=== PATIENT | male | born 2000 | race Caucasian/White ===

== ENCOUNTER 2024-04-02 16:54 | Emergency (ER) | payer OTHER, SELFPAY ==
[2024-04-02 17:24] VITALS: BP 123/78
[2024-04-02 17:37] LABS: % Basophils 1.3 % (0-2); % Eosinophils 4.3 % (0-6); % Immature Granulocytes 0.1 % (0-0.5); % Lymphocytes 36.3 % (20.5-51.1); % Monocytes 8.3 % (1.7-9.3); % Neutrophils 49.7 % (42.2-75.2); Absolute Basophils 0.1 10^3/uL (0-0.2); Absolute Eosinophils 0.3 10^3/uL (0-0.7); Absolute Lymphocytes 2.6 10^3/uL (1.2-3.4); Absolute Monocytes 0.6 10^3/uL (0.1-0.6); Absolute Neutrophils 3.6 10^3/uL (1.4-6.5); Hematocrit 43.7 % (39.0-52.0); Hemoglobin 14.9 g/dL (13.0-18.0); Mean Corp Hgb Conc. 34.1 g/dL (33.0-37.0); Mean Corpuscular Hgb 28.9 pg (27.0-31.0); Mean Corpuscular Volume 84.9 fL (80.0-94.0); Mean Platelet Volume 10.6 fL (7.4-10.4); Nucleated Red Blood Cells % 0 % (-); Platelet Count 280 10^3/uL (130-400); Red Blood Cell Count 5.15 10^6/uL (4.70-6.10); Red Cell Dist. Width 12.7 % (11.5-14.5); White Blood Cell Count 7.1 10^3/uL (4.8-10.8)
[2024-04-02 17:52] LABS: ALT (SGPT) 16 U/L (0-50); AST (SGOT) 23 U/L (17-59); Albumin 4.8 g/dl (3.5-5.0); Alkaline Phosphatase 56 U/L (38-126); Blood Urea Nitrogen 19 mg/dl (9-20); Carbon Dioxide 27 mmol/L (22-30); Chloride 101 mmol/L (98-107); Glucose 91 mg/dl (70-99); Potassium 4.3 mmol/L (3.5-5.1); Sodium 140 mmol/L (135-145); Total Bilirubin 0.4 mg/dl (0.2-1.3); Total Protein 7.2 g/dl (6.3-8.2); eGFR > 60.00
[2024-04-02 18:01] VITALS: BMI 27.8
[2024-04-02 18:04] VITALS: BP 119/67
--- NOTE | 2024-04-02 19:09 | ED.GENMED ---
History of Present Illness
General
Chief Complaint: Abdominal Pain
Source: patient
Exam Limitations: none
Time Seen by Provider: 04/02/24 18:46
History of Present Illness
History of Present Illness:
This is a 23 year old male that comes in with c/o right lower abd pain. States that he started with abd pain on Friday. States that when he got up on Friday the pain was still there. States that it has been steady. States that when he moves around
or coughs he had pain. Today patient went to see the PCP and when she pushed on the left he had pain on the right. States that he was sent in for further evaluation. States that he has had diarrhea only once in the morning. Denies any fever,
chills, chest pain, SOB, nausea, vomiting, headache, dizziness, urinary burning.
Past History
Past History
ED Past Medical History: None; Negative Asthma, HTN, Hypercholesterolemia or NIDDM
ED Past Surgical History: None
Social History
Tobacco: Vaping
Alcohol: Occasional
Personal: Single
Living: with family
Review of Systems
Review of Systems
All Other Systems: ROS reviewed and negative except as documented in HPI and ROS
Constitutional: Reports no symptoms; Denies fever or chills
EENT: Reports no symptoms
Respiratory: Reports no symptoms; Denies cough or trouble breathing
Cardiac: Reports no symptoms; Denies chest pain
ABD/GI: Reports abdominal pain and diarrhea; Denies nausea or vomiting
: Reports no symptoms; Denies dysuria, frequency or urgency
Musculoskeletal: Reports no symptoms
Skin: Reports no symptoms
Neurological: Reports no symptoms; Denies dizzy or headache
Psychiatric: Reports no symptoms
Phy Exam
General Physical Exam
General Presentation: well appearing and no apparent distress
General age: appears stated age
General Skin: warm and dry
General Habitus: normal
General Mental: alert
General Hydration: appears well hydrated
ENT Exam
ENT Exam: TM's normal, pharynx normal and neck supple
Eye Exam
Eye Exam: EOMI
Cardiovascular Exam
Cardiovascular Exam: regular rate/rhythm, no edema, no murmur and normal peripheral pulses
Pulmonary Exam
Pulmonary Exam: lungs clear, no respiratory distress, no rales, chest non tender, no crackles, no rhonchi, no wheezing and no cough
Gastrointestinal Exam
Gastrointestinal Exam: normal bowel sounds, soft, no organomegaly, no pulsatile mass, non distended and tender (RLQ tenderness with palpation)
Musculoskeletal Exam
Musculoskeletal Exam: full ROM and no edema
Skin Exam
Skin Exam: normal color, warm/dry, no rash and no petechia
Psychiatric Exam
Psychiatric Exam: normal mood/affect
Course
Orders/Labs/Results
Orders:
Orders
04/02/24 17:29
Complete Blood Count/With Diff Urgent
Comprehensive Metabolic Panel Urgent
04/02/24 19:09
CT Abd/pel W Iv And Oral Contr Urgent
Comment:
Reason For Exam: Right lower abd pain
0.9% Sodium Chloride 1000 ml [Nss] 1,000 ml IV BOLUS
Iohexol [Omnipaque] See Protocol PO NOW STA
04/02/24 21:05
Urinalysis Reflex To Culture Urgent
Date Specimen was Collected: 04/02/24
Time Specimen was Collected: 21:01
Abnormal Lab Results
04/02/24
17:29
MPV 10.6 H fL
(7.4-10.4)
04/02/24 17:29
04/02/24 17:29
Labs unremarkable. Urine negative for infection.
Vital Signs
Initial and Last Documented VS:
Initial Vital Signs
Temp Pulse Resp BP Pulse Ox
98 F 65 18 123/78 98
04/02/24 17:24 04/02/24 17:24 04/02/24 17:24 04/02/24 17:24 04/02/24 17:24
Last Documented Vital Signs
Temp Pulse Resp BP Pulse Ox
97.9 F 58 16 112/71 98
04/02/24 18:04 04/02/24 22:02 04/02/24 22:02 04/02/24 22:02 04/02/24 22:02
MDM/Problems Addressed
Differential Diagnosis Includes:
Appendicitis, Colitis
MDM/Problems Addressed:
This is a 23 year old male that comes in with c/o right lower abd pain that started on Friday. States that this has been Steady and that today he went to see the PCP and was sent to the ER further evaluation.
Will get labs and CT scan.
Back into see patient. Explained that his blood work is normal and the CT is normal. Questioned patient if he was doing any exercises that he could have pulled a groin muscle. States that he does work at [employer] and he has also kristi golfing. EXplained
that he may have just pulled his muscle. Patient to follow up with the family doctor. Return with any concerns.
Chronic conditions affecting care:
NA
Acute Exacerbation and/or Progression of Chronic Illness:
NA
*Radiology
Radiology exam reviewed: radiology read reviewed (CT- No significant abnormality identified in the abdomen or pelvis, as described above. Normal appendix. )
*Pulse Oximetry
Patient hypoxic: no
*EKG
Interpreted by ED Provider?: NA
Rate: EKG- N/A
*Bingo Usher Interpretation
Rate: Bingo Usher- N/A
*Critical Care Note
Total Time (30-74mins, 75-104mins- exclusive of procedures): Not Applicable
ED Attending Note
-
Portions of this chart may have been created with voice recognition software.� Occasional wrong word or��sound alike� substitutions may have occurred due to the inherent limitations of voice recognition software.
Discharge Plan
Departure
Patient Disposition: Home (Routine Discharge)
Date of Disposition: 04/02/24
Time of Disposition: 22:52
Patient with high blood pressure during this ER visit?: No
Condition: Good
Covid-19: Not Applicable
Discharge Problem:
Abdominal pain, lower
Instructions: Abdominal Pain
Prescriptions:
No Action
naproxen sodium [Aleve] 220 MG tablet
220 mg PO PRN PRN (Reason: headache)
Referrals:
UNKNOWN - PT DOES,NOT KNOW [Family Provider] -
Activity Restrictions/Additional Instructions:
As discussed, your blood work is all normal along with your CT scan. This may be due to muscle pulls with lifting of twisting. You may use Tylenol or Ibuprofen for pain. Follow with the family doctor as needed. IF YOU HAVE ANY OTHER CONCERNS PLEASE
RETURN TO THE EMERGENCY ROOM.
Interventions
Interventions:
*Risk Screen - Suicide Last Done: 04/02/24 18:01
*General Assessment Last Done: 04/02/24 18:01
*Neglect/Abuse Screening Last Done: 04/02/24 18:01
*ED COVID-19 Vaccine History Last Done: 04/02/24 18:01
LT-Ioxdwe-Vifgevtefb Assessment Last Done: 04/02/24 18:05
Discharge Date and Time
Print Language: MARTINIQUAIS
[2024-04-02] MEDS: OMNIPAQUE 50 ML PO (19:18)
[2024-04-02] MEDS: NSS 1000 IV (19:28)
[2024-04-02 19:30] VITALS: BP 119/73
[2024-04-02 21:11] LABS: Urine Albumin Negative (Neg - Trace); Urine Bilirubin Negative (Negative); Urine Character Clear (Clear); Urine Color Yellow; Urine Glucose Negative (Negative); Urine Ketone Negative (Negative); Urine Leukocyte Negative (Negative); Urine Nitrite Negative (Negative); Urine Occult Blood Negative (Negative); Urine Specific Gravity 1.015 (<1.030); Urine Urobilinogen Negative (Neg - 1+)
[2024-04-02 22:02] VITALS: BP 112/71
[2024-04-02 22:56] VITALS: BP 122/71
== END 2024-04-02 23:02 | disposition home or self-care (01) ==
LOC: EMR 16:54
PROVIDERS: Clinical Nurse Specialist Family Health; Emergency Medicine; EMERGENCY PHYSICIAN Student in an Organized Health Care Education/Training Program
DX: R10.31 Right lower quadrant pain (principal); R19.7 Diarrhea, unspecified; F17.290 Nicotine dependence, other tobacco product, uncomplicated
CPT/HCPCS: 99284; 96361; 96360; 74177; 80053; 81003; 85025; Q9967